=== PATIENT | female | born 1960 | race Caucasian/White ===

== ENCOUNTER 2020-03-04 10:25 | Outpatient (REF) | payer OTHER, SELFPAY ==
--- NOTE | 2020-03-04 | MM_ITS ---
EXAMINATION: MM SCREENING DIGITAL BREAST TOMOSYNTHESIS, BILATERAL CLINICAL INFORMATION: Screening. Asymptomatic. The lifetime risk of breast cancer based on the Tyrer-Cuzick Model is 8.5%. COMPARISON: Mammography: February 27, 2019 and September 10, 2017 TECHNIQUE: Digital breast tomosynthesis is performed in both the craniocaudal and mediolateral oblique views along with computer-aided detection (CAD). Synthesized 2D images are generated from the tomosynthesis. FINDINGS: There are scattered areas of fibroglandular density (ACR BI-RADS breast composition Category b). There are no significant masses, abnormal calcifications, or other abnormalities. IMPRESSION: There are no significant changes from prior study. ASSESSMENT: BI-RADS 1: Negative RECOMMENDATION: Routine annual mammography screening. This patient's information was entered into a reminder system with a target due date for their next mammogram.
== END 2020-03-04 10:26 | disposition home or self-care (01) ==
LOC: HO.MAMMO 10:25
PROVIDERS: PCP Internal Medicine; Visit Provider Internal Medicine
DX: Z12.31 Encounter for screening mammogram for malignant neoplasm of breast (principal)
CPT/HCPCS: 77063; 77067

== ENCOUNTER 2020-04-01 14:21 | Outpatient (REF) | payer OTHER, SELFPAY | END 2020-04-01 14:22 | disposition home or self-care (01) | LOC: HO.HMGCLDS 14:21 | PROVIDERS: PCP Internal Medicine; Visit Provider Internal Medicine | DX: Z20.828 Contact with and (suspected) exposure to other viral communicable diseases (principal) | CPT/HCPCS: C9803; U0003 ==

== ENCOUNTER 2020-04-12 08:41 | Outpatient (REF) | payer OTHER, SELFPAY | END 2020-04-12 08:42 | disposition home or self-care (01) | LOC: HO.HMGCLDS 08:41 | PROVIDERS: PCP Internal Medicine; Visit Provider Internal Medicine | DX: Z20.828 Contact with and (suspected) exposure to other viral communicable diseases (principal) | CPT/HCPCS: C9803; U0003 ==

== ENCOUNTER 2021-03-20 08:55 | Outpatient (REF) | payer OTHER, SELFPAY ==
--- NOTE | ~2021-03-20 | MM_ITS ---
EXAMINATION: MM SCREENING DIGITAL BREAST TOMOSYNTHESIS, BILATERAL CLINICAL INFORMATION: Screening. Asymptomatic. The lifetime risk of breast cancer based on the Tyrer-Cuzick Model is 9%. COMPARISON: Mammography: 03/04/2020, 02/27/2019, 09/10/2017 TECHNIQUE: Digital breast tomosynthesis is performed in both the craniocaudal and mediolateral oblique views along with computer-aided detection (CAD). Synthesized 2D images are generated from the tomosynthesis. FINDINGS: There are scattered areas of fibroglandular density (ACR BI-RADS breast composition Category b). There are no significant masses, abnormal calcifications, or other abnormalities. Parenchymal pattern is similar to prior studies. No significant changes. MM/MM tomosynthesis screening BI IMPRESSION: No mammographic evidence of malignancy. ASSESSMENT: BI-RADS 1: Negative RECOMMENDATION: Routine annual mammography screening. This patient's information was entered into a reminder system with a target due date for their next mammogram.
== END 2021-03-20 08:56 | disposition home or self-care (01) ==
LOC: HO.MAMMO 08:55
PROVIDERS: Visit Provider Internal Medicine
DX: Z12.31 Encounter for screening mammogram for malignant neoplasm of breast (principal)
CPT/HCPCS: 77063; 77067

== ENCOUNTER 2021-06-20 07:01 | Outpatient (REF) | payer OTHER, SELFPAY ==
[2021-06-20 11:34] LABS: MANUAL DIFF FLAG NO
[2021-06-20 11:40] LABS: Basophils Absolute Auto 0.1 X10*3/uL (0.0-0.2); Basophils Percent Auto 0.6 % (0-2); Eosinophils Absolute Auto 0.1 X10*3/uL (0.0-0.4); Eosinophils Percent Auto 1.5 % (0-4); Hematocrit 45.2 % (37.0-47.0); Hemoglobin 14.8 g/dl (12.0-16.0); Imm Gran Abs Auto 0.03 X10*3/uL (0.00-0.03); Imm Gran Pct Auto 0.4 % (0.0-0.4); Lymphocytes Absolute Auto 2.7 X10*3/uL (1.2-4.9); Lymphocytes Percent Auto 31.4 % (20-40); Mean Corpuscular HGB Conc 32.7 g/dl (31.0-35.0); Mean Corpuscular Hemoglobin 31.5 pg (27.0-33.0); Mean Corpuscular Volume 96.2 fL (80.0-98.0); Mean Platelet Volume 10.2 fL (9.4-12.3); Monocytes Absolute Auto 0.7 X10*3/uL (0.1-1.2); Monocytes Percent Auto 7.7 % (2-11); Neutrophils Percent Auto 58.4 % (45-73); Platelet Count 287 X10*3/uL (160-400); Red Cell Distribution Width 12.2 % (11.0-16.0); White Blood Count 8.6 X10*3/uL (4.8-10.8)
[2021-06-20 11:59] LABS: Alanine Aminotransferase 41 U/L (0-31); Albumin Level 4.3 g/dL (3.5-5.0); Alkaline Phosphatase 63 U/L (39-117); Anion Gap 11 (12-20); Aspartate Amino Transferase 23 U/L (5-31); Bilirubin Total 0.5 mg/dL (0.0-1.0); Blood Urea Nitrogen 15 mg/dL (9-16); Calcium 9.6 mg/dL (8.4-10.2); Carbon Dioxide 30 mmol/L (22-29); Chloride 105 mmol/L (96-108); Cholesterol 204 mg/dL; Estimated Glomerular Filt Rate > 60; Glucose Fasting 106 mg/dL (60-99); HDL Cholesterol 44 mg/dL; LDL Cholesterol Calculated 124 mg/dl; Potassium 4.5 mmol/L (3.3-5.1); Sodium 141 mmol/L (135-145); Triglycerides 181 mg/dL
[2021-06-24 13:06] LABS: Vitamin D 25-OH, D2 <4 ng/mL; Vitamin D 25-OH, D3 23 ng/mL; Vitamin D 25-OH, Total 23 ng/mL (30-100)
== END 2021-06-20 07:02 | disposition home or self-care (01) ==
LOC: HO.HMGCLDS 07:01
PROVIDERS: Visit Provider Internal Medicine
DX: E03.8 Other specified hypothyroidism (principal); E55.9 Vitamin D deficiency, unspecified; E66.09 Other obesity due to excess calories; G47.33 Obstructive sleep apnea (adult) (pediatric); R73.01 Impaired fasting glucose; Z99.89 Dependence on other enabling machines and devices
CPT/HCPCS: 36415; 80053; 80061; 82306; 84443; 85025

== ENCOUNTER 2022-03-26 08:28 | Outpatient (REF) | payer OTHER, SELFPAY ==
--- NOTE | ~2022-03-26 | MM_ITS ---
EXAMINATION: MM SCREENING DIGITAL BREAST TOMOSYNTHESIS, BILATERAL CLINICAL INFORMATION: Screening. Asymptomatic. The lifetime risk of breast cancer based on the Tyrer-Cuzick Model is 6%. COMPARISON: Mammography: 03/20/2021, 03/04/2020, 02/27/2019 TECHNIQUE: Digital breast tomosynthesis is performed in both the craniocaudal and mediolateral oblique views along with computer-aided detection (CAD). Synthesized 2D images are generated from the tomosynthesis. FINDINGS: There are scattered areas of fibroglandular density (ACR BI-RADS breast composition Category b). There are no significant masses, abnormal calcifications, or other abnormalities. Parenchymal pattern is similar to prior studies. There is no developing density or architectural abnormality. The axilla and skin contours are unremarkable. No significant changes. MM/MM tomosynthesis screening BI IMPRESSION: No mammographic evidence of malignancy. ASSESSMENT: BI-RADS 1: Negative RECOMMENDATION: Routine annual mammography screening. This patient's information was entered into a reminder system with a target due date for their next mammogram.
== END 2022-03-26 08:29 | disposition home or self-care (01) ==
LOC: HO.MAMMO 08:28
PROVIDERS: PCP Internal Medicine; Visit Provider Internal Medicine
DX: Z12.31 Encounter for screening mammogram for malignant neoplasm of breast (principal)
CPT/HCPCS: 77063; 77067

== ENCOUNTER 2022-08-02 07:27 | Outpatient (REF) | payer OTHER, SELFPAY ==
[2022-08-02 11:06] LABS: MANUAL DIFF FLAG NO
[2022-08-02 11:22] LABS: Basophils Percent Auto 0.6 % (0-2); Eosinophils Absolute Auto 0.1 X10*3/uL (0.0-0.4); Eosinophils Percent Auto 1.7 % (0-4); Hematocrit 45.2 % (37.0-47.0); Hemoglobin 14.9 g/dl (12.0-16.0); Imm Gran Abs Auto 0.02 X10*3/uL (0.00-0.03); Imm Gran Pct Auto 0.3 % (0.0-0.4); Lymphocytes Absolute Auto 2.7 X10*3/uL (1.2-4.9); Lymphocytes Percent Auto 37.4 % (20-40); Mean Corpuscular Hemoglobin 31.2 pg (27.0-33.0); Mean Corpuscular Volume 94.6 fL (80.0-98.0); Mean Platelet Volume 10.2 fL (9.4-12.3); Monocytes Absolute Auto 0.6 X10*3/uL (0.1-1.2); Monocytes Percent Auto 8.1 % (2-11); Neutrophils Absolute Auto 3.7 x10*3/uL (2.0-8.3); Neutrophils Percent Auto 51.9 % (45-73); Platelet Count 275 X10*3/uL (160-400); Red Blood Count 4.78 X10*6/uL (4.20-5.50); Red Cell Distribution Width 12.2 % (11.0-16.0); White Blood Count 7.2 X10*3/uL (4.8-10.8)
[2022-08-02 11:30] LABS: Estimated Average Glucose 114 mg/dL; Hemoglobin A1c % 5.6 %
[2022-08-02 11:49] LABS: Alanine Aminotransferase 30 U/L (0-31); Albumin Level 4.3 g/dL (3.5-5.0); Alkaline Phosphatase 65 U/L (39-117); Anion Gap 14 (12-20); Aspartate Amino Transferase 19 U/L (5-31); Bilirubin Total 0.5 mg/dL (0.0-1.0); Blood Urea Nitrogen 17 mg/dL (9-16); Calcium 9.8 mg/dL (8.4-10.2); Carbon Dioxide 29 mmol/L (22-29); Chloride 106 mmol/L (96-108); Cholesterol 203 mg/dL; Estimated Glomerular Filt Rate > 60; Glucose Fasting 115 mg/dL (60-99); HDL Cholesterol 40 mg/dL; LDL Cholesterol Calculated 136 mg/dl; Potassium 4.9 mmol/L (3.3-5.1); Sodium 144 mmol/L (135-145); Total Protein 6.7 g/dL (6.5-8.0); Triglycerides 139 mg/dL
[2022-08-02 12:39] LABS: TSH reflex Free T4 2.18 uIU/mL (0.32-4.0)
[2022-08-08 23:14] LABS: Vitamin D 25-OH, D2 <4 ng/mL; Vitamin D 25-OH, D3 25 ng/mL; Vitamin D 25-OH, Total 25 ng/mL (30-100)
== END 2022-08-02 07:28 | disposition home or self-care (01) ==
LOC: HO.HMGCLDS 07:27
PROVIDERS: PCP Internal Medicine; Visit Provider Internal Medicine
DX: Z00.01 Encounter for general adult medical examination with abnormal findings (principal); E03.8 Other specified hypothyroidism; E55.9 Vitamin D deficiency, unspecified; E66.09 Other obesity due to excess calories; R73.01 Impaired fasting glucose
CPT/HCPCS: 36415; 80053; 80061; 82306; 83036; 84443; 85025

== ENCOUNTER 2023-02-11 11:08 | Outpatient (AMB) | payer OTHER, SELFPAY ==
[2023-02-11 11:40] VITALS: BP 126/78; PULSE 73; TEMP 36.7; O2SAT 98; BMI 37.1
--- NOTE | 2023-02-11 11:40 | AM.OFFWIN_ITS ---
Intake Vital Signs 02/11/23 11:40 Height 5 ft 2 in Weight 92.079 kg BMI 37.1 BP 126/78 Blood Pressure Location Rt brachial Position Sitting Pulse 73 Pulse Source Pulse Oximeter Temp 98.1 F Temp Source Temporal Artery Scan Pulse Oximetry (%) 98 Intake Visit Reasons: EST/uti Intake Note: pt is here for c/o possible uti Patient Tobacco Use Status: Former Tobacco user (38 years ago ) Allergies No Known Allergies Allergy (Verified 02/11/23 11:42) Do you need a note to return to daycare/school/sports/work: Yes HPI EST/uti HPI Details Patient presents with dysuria, urinary urgency and frequency x3 weeks. She denies fevers, hematuria, flank pain or pelvic pain. She has had similar UE symptoms in the past that were diagnosed as UTI. No history of known prolapse or bladder spasms or kidney stones. Denies vaginal symptoms or discharge. PFSH Family History Other Substance use disorder Social History Housing: House Alcohol intake: current Alcohol intake frequency: a few times a month Patient Tobacco Use Status: Former Tobacco user (38 years ago ) Tobacco use type: Cigarette Years Smoked: 7 years e-Cigarette/Vaping Use: Never Used Second Hand Smoke Exposure: No service: No Current occupational status: retired Current occupational exposures/hazards: No Cognitive needs: No Hearing needs: No Vision needs: Yes Review of Systems Const Reports as per HPI and Reports no additional complaints GI Reports as per HPI and Reports no additional complaints Reports as per HPI Physical Exam Vital Signs: Last Vital Signs Temp 98.1 F 02/11/23 11:40 Pulse 73 02/11/23 11:40 BP 126/78 02/11/23 11:40 Pulse Ox 98 02/11/23 11:40 BMI result Body Mass Index 37.1 Const General: cooperative, comfortable and no acute distress Orientation/consciousness: patient oriented x3 Resp Effort & Inspection: normal respiratory effort Auscultation: clear to auscultation bilaterally Cardio Rate: regular rate Rhythm: regular rhythm Heart sounds: S1 normal heart sound present and S2 normal heart sound present General: Yes bladder normal to palpation and Yes no CVA tenderness Bimanual exam- vagina & uterus: bladder normal to palpation Back/Spine/Pelvis Back: no CVA tenderness Neuro General: patient oriented x3 Results AMB Urinalysis, Automated UA Leukoctes 0 Gi/uL Last Edit by Ash Munoz CMA on 02/11/23 11:48 UA Nitrite Negative Last Edit by Ash Munoz CMA on 02/11/23 11:48 UA Urobilinogen 0.2 mg/dL Last Edit by Ash Munoz CMA on 02/11/23 11 :48 UA Protein 0 mg/dL Last Edit by Ash Munoz CMA on 02/11/23 11:48 UA pH 6.0 Last Edit by Ash Munoz CMA on 02/11/23 11:48 UA Blood 0 Enrike/uL Last Edit by Ash Munoz CMA on 02/11/23 11:48 UA Specific [place] 1.005 Last Edit by Ash Munoz CMA on 02/11/23 11:48 UA Ketone Negative Last Edit by Ash Munoz CMA on 02/11/23 11:48 UA Bilirubin 0 mg/dL Last Edit by Ash Munoz CMA on 02/11/23 11:48 UA Glucose 0 mg/dL Last Edit by Ash Munoz CMA on 02/11/23 11:48 Results Reviewed Results Reviewed: Laboratory Last Values Urine pH (Auto) 6.0 02/11/23 11:47 Specific [place] (Auto) 1.005 02/11/23 11:47 Urine Protein (Auto) 0 mg/dL 02/11/23 11:47 Glucose (UA)(Auto) 0 mg/dL 02/11/23 11:47 Urine Ketones (Auto) Negative 02/11/23 11:47 Urine Blood (Auto) 0 Enrike/uL 02/11/23 11:47 Urine Nitrite (Auto) Negative 02/11/23 11:47 Urine Bilirubin (Auto) 0 mg/dL 02/11/23 11:47 Urine Urobilinogen (Auto) 0.2 mg/dL 02/11/23 11:47 Leukocyte Esterase (Auto) 0 Gi/uL 02/11/23 11:47 Assessment & Plan Assessment & Plan (1) Dysuria: Code(s): R30.0 - Dysuria Plan: Will treat for UTI although urine sample provided today is nondiagnostic. Advised patient she may need follow-up with PCP or referral to urology if symptoms persist to rule out other causes of her symptoms such as prolapse, cystitis, overactive bladder. Orders: Orders AMB Urinalysis Automated Today Z13.9 - Encounter for screening, unspecified John Caba MD Medications: New nitrofurantoin monohyd/m-cryst 100 mg (Macrobid) must administer with a meal/food 100 mg PO Q12H 5 days 10 caps 0RF CHRISTIN Quintanilla Coding Level of Care Code Est Pt Level 3 (36939) Diagnoses Dysuria R30.0
== END 2023-02-11 12:10 | disposition home or self-care (01) ==
PROVIDERS: PCP Internal Medicine; Visit Provider Physician Assistant
DX: R30.0 Dysuria (principal)
CPT/HCPCS: 81003; 99213

== ENCOUNTER 2023-04-01 09:09 | Outpatient (REF) | payer OTHER, SELFPAY | END 2023-04-01 09:10 | disposition home or self-care (01) | LOC: HO.MAMMO 09:09 | PROVIDERS: PCP Internal Medicine; Visit Provider Internal Medicine | DX: Z12.31 Encounter for screening mammogram for malignant neoplasm of breast (principal) | CPT/HCPCS: 77063; 77067 ==

== ENCOUNTER → 2023-04-01 09:30 | Outpatient (BNV) | payer OTHER, SELFPAY | PROVIDERS: PCP Internal Medicine; Visit Provider Radiology Diagnostic Radiology | DX: Z12.31 Encounter for screening mammogram for malignant neoplasm of breast (principal) | CPT/HCPCS: 77063; 77067 ==

== ENCOUNTER 2023-08-02 13:12 | Outpatient (AMB) | payer OTHER, SELFPAY ==
[2023-08-02 13:19] VITALS: BP 124/66; PULSE 71; O2SAT 98; BMI 37.2
--- NOTE | 2023-08-02 13:19 | MHC.PC.OV ---
Vital Signs 08/02/23 13:19 Height 5 ft 2 in Weight 203 lb 6 oz BMI 37.2 BP 124/66 Blood Pressure Location Lt brachial Position Sitting Pulse 71 Pulse Source Pulse Oximeter Pulse Oximetry (%) 98 Oxygen Delivery Method Room Air Intake Visit Reasons: PE Allergies No Known Allergies Allergy (Verified 08/02/23 13:19) Medication List - Last Reconciled 08/02/23 by Regino Jimenez MD albuterol sulfate 90 mcg/actuation (Ventolin HFA) 2 inhalations inhalation QID PRN levothyroxine 25 mcg PO DAILY 90 days Tobacco use date assessed: 08/02/23 Dental Screening Dental Screen Date: 08/02/23 Did you have a dental visit in the last 12 months?: Yes Did you have a dental problem in the last 6 months where you did not have access to dental care?: No Was dental information given to patient?: Patient has dentist HPI PE HPI Details PE Mamogram 03/2023 due for Obgyn visit Colonoscopy will be in 2025 as per patient due for labs, order placed fasting f/u 1 yr PFSH Family History Other Substance use disorder Social History Housing: House Alcohol intake: current Alcohol intake frequency: a few times a month Patient Tobacco Use Status: Former Tobacco user (38 years ago ) Tobacco use type: Cigarette Years Smoked: 7 years e-Cigarette/Vaping Use: Never Used Second Hand Smoke Exposure: No service: No Current occupational status: retired Current occupational exposures/hazards: No Cognitive needs: No Hearing needs: No Vision needs: Yes Questionnaire Thrive Questionnaire Date Thrive assessed: 07/20/22 AUDIT C Alcohol Use Questionnaire (AUDIT-C) 1. How often do you have a drink containing alcohol?: Monthly or less 2. How many drinks containing alcohol do you have on a typical day when you are drinking?: 1 or 2 3. How often do you have six or more drinks on one occasion?: Never Total Score: 1 Score Reviewed/Action Taken: Yes ARMANDO-7 AMB Questionnaire ARMANDO-7 Date ARMANDO - 7 assessed: 07/20/22 Source: Developed by Drs. Javier Parkinson, Kavya Calvillo, Adam Gonzalez and colleagues, with an educational sterling from [employer]. Review of Systems Const Denies chills, Denies fever(s) and Denies headache(s) Eyes Denies blurry vision ENT Denies headache(s), Denies nasal discharge, Denies nasal obstruction, Denies odynophagia and Denies sinus pain Card Denies chest pain at rest and Denies chest pain with activity Resp Denies cough and Denies hemoptysis GI Denies diarrhea, Denies odynophagia, Denies vomiting and Denies hematemesis Reports as per HPI Musc Denies abnormal gait Skin/Breast Reports as per HPI Neuro Denies Neuro-related abnormal movements, Denies Abnormal speech present, Denies abnormal gait, Denies headache(s) and Denies Sensory deficit (Neuro) Psych Denies mood swings and Denies paranoia Endo Reports as per HPI Suman/Lymph Reports as per HPI Aller/Immun Reports as per HPI Physical exam (Primary Care) Vital Signs: Last Vital Signs Pulse 71 08/02/23 13:19 BP 124/66 08/02/23 13:19 Pulse Ox 98 08/02/23 13:19 Oxygen Delivery Method Room Air 08/02/23 13:19 BMI result Body Mass Index 37.2 Tobacco/Smoking Status: Tobacco use Status Tobacco use date assessed 08/02/23 08/02/23 13:21 Patient Tobacco Use Status Former Tobacco user (38 08/02/23 13:21 years ago ) Tobacco use type Cigarette 08/02/23 13:21 e-Cigarette/Vaping Use Never Used 08/02/23 13:21 Thrive Assessment: Date of Thrive Assessment Date Thrive assessed 07/20/22 08/02/23 13:21 Const General: cooperative, comfortable and no acute distress Orientation/consciousness: patient oriented x3 HENMT Head: Yes normocephalic and Yes atraumatic Eyes General: appearance normal, both eyes and all related structures Pupils: Equal, round and reactive pupils present EOM: EOMs intact bilaterally Neck Neck: Yes supple and No lymphadenopathy Thyroid: Thyroid normal Lymphatic: no lymphadenopathy noted Resp Effort & Inspection: normal respiratory effort and able to speak in complete sentences Auscultation: clear to auscultation bilaterally Cardio Heart sounds: S1 normal heart sound present and S2 normal heart sound present GI Palpation (GI): Soft to palpation and nontender Auscultation: normal bowel sounds General: Yes no CVA tenderness Back/Spine/Pelvis Back: no CVA tenderness Skin General skin exam: elasticity normal and turgor normal Neuro General: patient oriented x3 and gait normal Cranial nerves: Yes Equal, round and reactive pupils present Speech: No Abnormal speech present Sensory Exam: No Sensory deficit (Neuro) Coordination: tandem gait normal and Romberg test negative Extrem General: Yes normal exam except as noted and No edema Assessment and Plan Assessment & Plan (1) Other specified hypothyroidism: Code(s): E03.8 - Other specified hypothyroidism (2) Obesity due to excess calories: Code(s): E66.09 - Other obesity due to excess calories Qualifiers: Body mass index: BMI 37.0-37.9 Obesity classification: adult class 2 (BMI 35 - 39.9) Serious obesity comorbidity presence: with serious comorbidity Qualified Code(s): E66.01 - Morbid (severe) obesity due to excess calories; Z68.37 - Body mass index [BMI] 37.0-37.9, adult (3) Impaired fasting blood sugar: Code(s): R73.01 - Impaired fasting glucose (4) Vitamin D deficiency: Code(s): E55.9 - Vitamin D deficiency, unspecified (5) Encounter for general adult medical examination with abnormal findings: Code(s): Z00.01 - Encounter for general adult medical examination with abnormal findings (6) Obstructive sleep apnea on CPAP: Code(s): G47.33 - Obstructive sleep apnea (adult) (pediatric); Z99.89 - Dependence on other enabling machines and devices (7) Encounter for routine gynecological examination: Code(s): Z01.419 - Encounter for gynecological examination (general) (routine) without abnormal findings Orders: Orders Complete Blood Count Auto Diff Today E03.8 - Other specified hypothyroidism, E55.9 - Vitamin D deficiency, unspecified, E66.09 - Other obesity due to excess calories, G47.33 - Obstructive sleep apnea (adult) (pediatric), R73.01 - Impaired fasting glucose, Z00.01 - Encounter for general adult medical examination with abnormal findings, Z99.89 - Dependence on other enabling machines and devices Comprehensive [place]. Panel Fast Today E03.8 - Other specified hypothyroidism, E55.9 - Vitamin D deficiency, unspecified, E66.09 - Other obesity due to excess calories, G47.33 - Obstructive sleep apnea (adult) (pediatric), R73.01 - Impaired fasting glucose, Z00.01 - Encounter for general adult medical examination with abnormal findings, Z99.89 - Dependence on other enabling machines and devices Lipid Panel Today E03.8 - Other specified hypothyroidism, E55.9 - Vitamin D deficiency, unspecified, E66.09 - Other obesity due to excess calories, G47.33 - Obstructive sleep apnea (adult) (pediatric), R73.01 - Impaired fasting glucose, Z00.01 - Encounter for general adult medical examination with abnormal findings, Z99.89 - Dependence on other enabling machines and devices TSH reflex Free T4 Today E03.8 - Other specified hypothyroidism, E55.9 - Vitamin D deficiency, unspecified, E66.09 - Other obesity due to excess calories, G47.33 - Obstructive sleep apnea (adult) (pediatric), R73.01 - Impaired fasting glucose, Z00.01 - Encounter for general adult medical examination with abnormal findings, Z99.89 - Dependence on other enabling machines and devices Hemoglobin A1c Today R73.01 - Impaired fasting glucose Referrals MEDICAL RECORD TRANSCRIBER Referral Z01.419 - Encounter for gynecological examination (general) (routine) without abnormal findings Coding Level of Care Code Est Pt Prev Care 40-64y(96690) Diagnoses Other specified hypothyroidism E03.8 Class 2 severe obesity due to excess calories with serious comorbidity and body mass index (BMI) of 37.0 to 37.9 in adult E66.01; Z68.37 Body mass index: BMI 37.0-37.9 Obesity classification: adult class 2 (BMI 35 - 39.9) Serious obesity comorbidity presence: with serious comorbidity Impaired fasting blood sugar R73.01 Vitamin D deficiency E55.9 Encounter for general adult medical examination with abnormal findings Z00.01 Obstructive sleep apnea on CPAP G47.33; Z99.89 Encounter for routine gynecological examination Z01.419
== END 2023-08-02 13:37 | disposition home or self-care (01) ==
PROVIDERS: PCP Internal Medicine; Visit Provider Internal Medicine
DX: E03.8 Other specified hypothyroidism (principal); E66.01 Morbid (severe) obesity due to excess calories; Z68.37 Body mass index [BMI] 37.0-37.9, adult; R73.01 Impaired fasting glucose; E55.9 Vitamin D deficiency, unspecified; Z00.01 Encounter for general adult medical examination with abnormal findings; G47.33 Obstructive sleep apnea (adult) (pediatric); Z99.89 Dependence on other enabling machines and devices; Z01.419 Encounter for gynecological examination (general) (routine) without abnormal findings
CPT/HCPCS: 99396

== ENCOUNTER 2024-02-18 08:30 | Outpatient (REF) | payer OTHER, SELFPAY ==
[2024-02-21 00:43] LABS: HPV mRNA E6/E7 Not Detected (Not Detected)
== END 2024-02-18 08:31 | disposition home or self-care (01) ==
LOC: HO.LNP 08:30
PROVIDERS: PCP Internal Medicine; Visit Provider Advanced Practice Midwife
DX: Z01.419 Encounter for gynecological examination (general) (routine) without abnormal findings (principal)
CPT/HCPCS: 87624; 88175; 99386

== ENCOUNTER 2024-02-18 08:30 | Outpatient (AMB) | payer OTHER, SELFPAY ==
--- NOTE | 2024-02-18 08:38 | MHC.OFFVIS ---
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 She is doing well with no concerns. Attempting to eat a healthy diet with calcium and vitamin D and stays active with exercise. Currently not sexually active. Denies any vaginal dryness or irritation. STI testing offered; she declines. Last pap smear; 2016-at [facility], negative. Last mammogram; 03/2023. Colonoscopy is UTD. Denies any family history of breast, ovarian or colon cancer. [facility] Medical History (Updated 02/18/24 @ 09:07 by Magda Villa CNM) Asthma Other specified hypothyroidism Surgical History (Updated 02/18/24 @ 08:50 by VERÓNICA Lou) History of loop electrical excision procedure (LEEP) Family History (Updated 02/18/24 @ 08:47 by VERÓNICA Lou) Maternal Grandmother History of breast cancer Other Substance use disorder Social History Housing: House Alcohol intake: current Alcohol intake frequency: a few times a month Patient Tobacco Use Status: Former Tobacco user (38 years ago ) Tobacco use type: Cigarette Years Smoked: 7 years e-Cigarette/Vaping Use: Never Used Second Hand Smoke Exposure: No service: No Current occupational status: retired Current occupational exposures/hazards: No Cognitive needs: No Hearing needs: No Vision needs: Yes Female Reproductive History Menstrual Age of menopause: 50 Total pregnancies: 2 Full term: 2 Number of Living Children: 2 Date of last pap smear: 11/08/16 (neg pap and hpv) Date of Mammogram: 04/01/23 (Birad 1) Review of Systems Const All systems reviewed & are unremarkable except as noted in HPI and below Reports as per HPI Eyes Reports no additional complaints ENT Reports no additional complaints Card Reports no additional complaints Resp Reports no additional complaints GI Reports as per HPI and Reports no additional complaints Reports as per HPI Musc Reports no additional complaints Skin/Breast Reports as per HPI Neuro Reports no additional complaints Psych Reports no additional complaints Endo Reports no additional complaints Suman/Lymph Reports no additional complaints Aller/Immun Reports no additional complaints Physical Exam Vital Signs: BMI result Body Mass Index 38.4 Const General: cooperative, healthy appearing, no acute distress, well developed and alert Orientation/consciousness: patient oriented x3 HEENT Head: Yes normal to inspection Eyes General: appearance normal, both eyes and all related structures Neck Neck: Yes normal visual inspection Thyroid: Thyroid normal Chest Chest palpation & inspection: normal inspection of the chest and other (no puckering, dimpling, peau de orange, retraction, discharge, masses) Breast/axilla inspection: normal inspection of the breasts Breast/axilla palpation: normal palpation of the breasts Resp Effort & Inspection: normal respiratory effort GI Inspection: Yes normal to inspection Palpation (GI): Soft to palpation Rectal Exam - Female: deferred General: Yes bladder normal to palpation External Female Exam: normal external appearance and normal appearance of the urethra Speculum Exam - Vagina: normal appearance of the vagina, normal palpation and normal vaginal discharge Speculum Exam - Cervix: normal appearance of the cervix and normal palpation Bimanual exam- vagina & uterus: normal bimanual exam, normal palpation, uterine size normal, bladder normal to palpation, normal palpation and non-tender Bimanual Exam- Adnexa, other: no masses Skin General skin exam: no rashes or lesions noted Rashes: no rashes Neuro General: patient oriented x3 Cognition (Neuro): normal cognition Extrem General: Yes normal to inspection Psych Attitude: cooperative Thought process: Normal thought process present Assessment & Plan Assessment & Plan (1) Encounter for well woman exam with routine gynecological exam: Code(s): Z01.419 - Encounter for gynecological examination (general) (routine) without abnormal findings Category: Medical Plan Discussed: Current recommendations for pap smears per ASCCP guidelines. Pap smear obtained. Breast awareness, periodic self breast exams and yearly mammogram. Maintain a healthy lifestyle, well balanced diet including Calcium 1,200 mg and Vitamin D 600 IU daily, and routine exercise. Replens moisturizer and vaginal lubricants, role of vaginal estrogens risk factors. She opts to try Replens, and will follow up as needed. Contact the office with any postmenopausal bleeding. Patient verbalizes understanding and agrees to the plan of care. She was given opportunity to ask questions and all questions were answered to the best of my ability. RTO in 1 year for annual headrig sawyer exam. This note is constructed using voice recognition software. While every effort has been made to ensure accuracy, president financial institution errors may have been included. Coding Level of Care Code New Pt Prev Care 40-64y(23889) Diagnoses Encounter for well woman exam with routine gynecological exam Z01.419
[2024-02-18 08:40] VITALS: BP 120/82; BMI 38.4
== END 2024-02-18 09:09 | disposition home or self-care (01) ==
PROVIDERS: PCP Internal Medicine; Visit Provider Advanced Practice Midwife
DX: Z01.419 Encounter for gynecological examination (general) (routine) without abnormal findings (principal)
CPT/HCPCS: 99386

== ENCOUNTER 2024-04-02 08:56 | Outpatient (REF) | payer OTHER, SELFPAY ==
--- NOTE | ~2024-04-02 | MM_ITS ---
EXAMINATION: MM SCREENING DIGITAL BREAST TOMOSYNTHESIS, BILATERAL CLINICAL INFORMATION: Screening. Asymptomatic. COMPARISON: Mammography: Comparison is made with available priors TECHNIQUE: Digital breast mammography with tomosynthesis is performed in both the craniocaudal and mediolateral oblique views along with computer-aided detection (CAD). FINDINGS: There are scattered areas of fibroglandular density (ACR BI-RADS breast composition Category b). There are no significant masses, abnormal calcifications, or other abnormalities. MM/MM tomosynthesis screening BI IMPRESSION: No mammographic evidence of malignancy. ASSESSMENT: BI-RADS BI-RADS 1 - Negative RECOMMENDATION: Routine annual mammography screening. 1 year F/U This examination should not preclude the clinical evaluation of a suspicious palpable abnormality. This patient's information was entered into a reminder system with a target due date for their next mammogram. Electronically signed by: Xochitl Hammonds DO 04/10/2024 10:45 AM NIKIA
== END 2024-04-02 08:57 | disposition home or self-care (01) ==
LOC: HO.MAMMO 08:56
PROVIDERS: PCP Internal Medicine; Visit Provider Internal Medicine
DX: Z12.31 Encounter for screening mammogram for malignant neoplasm of breast (principal)
CPT/HCPCS: 77063; 77067

== ENCOUNTER → 2024-04-02 09:15 | Outpatient (BNV) | payer OTHER, SELFPAY | PROVIDERS: PCP Internal Medicine; Visit Provider Internal Medicine | DX: Z12.31 Encounter for screening mammogram for malignant neoplasm of breast (principal) | CPT/HCPCS: 77063; 77067 ==

== ENCOUNTER 2024-08-19 15:07 | Outpatient (AMB) | payer OTHER, SELFPAY ==
[2024-08-19 15:11] VITALS: BP 134/80; PULSE 79; O2SAT 99; BMI 37.7
--- NOTE | 2024-08-19 15:11 | A.OFFPC_ITS ---
Vital Signs 08/19/24 15:11 Height 5 ft 2 in Weight 206 lb BMI 37.7 BP 134/80 Blood Pressure Location Lt brachial Position Sitting Pulse 79 Pulse Source Pulse Oximeter Pulse Oximetry (%) 99 Oxygen Delivery Method Room Air Intake Visit Reasons: Annual physical Allergies No Known Allergies Allergy (Verified 08/19/24 15:11) Medication List - Last Reconciled 08/19/24 by Regino Jimenez MD albuterol sulfate 90 mcg/actuation (Ventolin HFA) 2 inhalations inhalation QID PRN levothyroxine 25 mcg PO DAILY 90 days Tobacco use date assessed: 08/19/24 Dental Screening Dental Screen Date: 08/19/24 Did you have a dental visit in the last 12 months?: Yes Did you have a dental problem in the last 6 months where you did not have access to dental care?: No Was dental information given to patient?: Patient has dentist HPI Annual physical HPI Details PE The patient is a 63-year-old female presenting with symptoms related to the eye possibly due to allergies. - She reports intermittent episodes of i rritation and itchiness in the right eye, - These symptoms occur off and on, and r ubbing the eye appears to exacerbate the irritation - She notes these symptoms are likely re lated to springtime allergies, Patient is feeling emotional as she just lost her son 2 weeks ago but holding on She has obstructive sleep apnea and her machine is malfunctioning It has been 10 years since she had a sleep study done, new order placed Patient has seen [facility] end of last year and has appointment coming up Mammogram through them She is due for colonoscopy, referral placed Trying to lose weight Lab order placed, which is overdue Patient is prediabetic She is also taking levothyroxine 25 mcg She says that she will come in tomorrow for blood test Follow-up 1 year physical exam Diagnostic results - Blood pressure recorded at 134/80 mmHg , indicating prehypertensive range. Review of Systems - Neurological: No headaches no dizzin ess - Ear nose throat: No sore throat no hearing difficulty no ear pain - Cardiovascular: No syncope, no chest pain, no palpitations - Gastrointestinal: No nausea vomiting or diarrhea - Endocrine: No polyuria polydipsia no heat intolerance - Genitourinary: No dysuria - Skin: No new complaints Physical Exam General: Cooperative, healthy appearing, comfortable, no acute distress Head: Normal to inspection Ears: Within normal limit visually, slight injection right eye without any discharge ROBERT EOMI no pain with palpation Nose: Normal external nose present Face and sinus: Normal facial exam Eyes: Appearance normal, extraocular movement intact, pupils reactive, conjunctiva irritated due to allergies Neck: Normal visual inspection and supple Respiratory: Normal respiratory effort and able to speak in complete sentences. Clear to auscultation, no stridor Cardiovascular: S1 and S2 regular in rate and rhythm Breast exam through OBGYN GI: Normal to inspection. Soft to palpation and nontender Skin: Turgor normal, no acute findings, small spot on leg noted, attributed to aging process Neuro: Patient oriented x3, motor sensory intact, balance intact, tandem pass Extremities: Normal to inspection, knees and hips okay [facility] Medical History Asthma Other specified hypothyroidism Surgical History History of loop electrical excision procedure (LEEP) Family History Maternal Grandmother History of breast cancer Other Substance use disorder Social History Housing: House Alcohol intake: current Alcohol intake frequency: a few times a month Patient Tobacco Use Status: Former Tobacco user (38 years ago ) Tobacco use type: Cigarette Years Smoked: 7 years e-Cigarette/Vaping Use: Never Used Second Hand Smoke Exposure: No service: No Current occupational status: retired Current occupational exposures/hazards: No Cognitive needs: No Hearing needs: No Vision needs: Yes Questionnaire PHQ-9 Over the last 2 weeks, how often have you been bothered by any of the following problems? 1. Little interest or pleasure in doing things: several days 2. Feeling down, depressed, or hopeless: several days 3. Trouble falling or staying asleep, or sleeping too much: several days 4. Feeling tired or having little energy: several days 5. Poor appetite or overeating: several days 6. Feeling bad about yourself - or that you are a failure or have let yourself or your family down: several days 7. Trouble concentrating on things, such as reading the newspaper or watching television: several days 8. Moving or speaking so slowly that other people could have noticed. Or the opposite - being so fidgety or restless that you have been moving around a lot more than usual: several days 9. Thoughts that you would be better off or of hurting yourself in some way: not at all Total score: 8 Depression Screening Interpretation: Negative Depression Screening Done: Yes 27384 - PHQ-9 Billing: Yes Source: Developed by Drs. Javier Parkinson, Kavya Calvillo, Adam Gonzalez and colleagues, with an educational sterling from [employer]. Thrive Questionnaire Date Thrive assessed: 08/19/24 I am a: Patient What is your living situation today?: I have a steady place to live Within the past 12 months, did the food you bought not last and you didn't have the money to get more?: Never true Within the past 12 months, did you worry whether your food would run out before you got money to buy more?: Sometimes True Do you have trouble paying for medicines?: No Do you have trouble getting transportation to medical appointments?: No Do you have trouble paying your heating and electricity bill?: No Do you have trouble taking care of your child, family member or friend?: No Do you have trouble with day-to-day activities such as bathing, preparing meals, shopping, managing finances, etc.?: No Are you currently unemployed and looking for a job?: No Are you interested in more education?: No Please select the resources that you would like help with: None Currently or been in a relationship where the following occur: No concerns reported THRIVE Score: 1 AUDIT C Alcohol Use Questionnaire (AUDIT-C) 1. How often do you have a drink containing alcohol?: Monthly or less 2. How many drinks containing alcohol do you have on a typical day when you are drinking?: 1 or 2 3. How often do you have six or more drinks on one occasion?: Never Total Score: 1 Score Reviewed/Action Taken: Yes ARMANDO-7 AMB Questionnaire ARMANDO-7 Date ARMANDO - 7 assessed: 08/19/24 Feeling nervous, anxious, or on edge: 0 = Not at all Not being able to stop or control worryin = Not at all Worrying too much about different things: 0 = Not at all Trouble relaxin = Not at all Being so restless that it is hard to sit still: 0 = Not at all Becoming easily annoyed or irritable: 0 = Not at all Feeling afraid as if something awful might happen: 0 = Not at all Total ARMANDO-7 score (0-4 normal; 5-9 mild; 10-14 moderate; 15-21 severe): 0 Source: Developed by Drs. Javier Parkinson, Kavya Calvillo, Adam Gonzalez and colleagues, with an educational sterling from [employer]. ARMANDO-7 Assessment Billing ARMANDO-7 Assessment Tool: ARMANDO-7 Assessment 33452 Physical exam (Primary Care) Vital Signs: Last Vital Signs Pulse 79 08/19/24 15:11 BP 134/80 08/19/24 15:11 Pulse Ox 99 08/19/24 15:11 Oxygen Delivery Method Room Air 08/19/24 15:11 BMI result Body Mass Index 37.7 Tobacco/Smoking Status: Tobacco use Status Tobacco use date assessed 08/19/24 08/19/24 15:11 Patient Tobacco Use Status Former Tobacco user (38 08/19/24 15:11 years ago ) Tobacco use type Cigarette 08/19/24 15:11 e-Cigarette/Vaping Use Never Used 08/19/24 15:11 PHQ-9: PHQ-9 Score PHQ-9: Total score 8 08/19/24 15:21 Depression Screening Interpretation: Negative Thrive Assessment: Date of Thrive Assessment Date Thrive assessed 08/19/24 08/19/24 15:21 Currently or been in a relationship where the following occur: No concerns reported Coding Level of Care Code Est Pt Level 3 (26847) Est Pt Prev Care 40-64y(36593) Diagnoses Encounter for general adult medical examination with abnormal findings Z00.01 Sleep apnea in adult G47.30 Impaired fasting blood sugar R73.01 Class 2 severe obesity due to excess calories with serious comorbidity and body mass index (BMI) of 37.0 to 37.9 in adult E66.01; Z68.37 Body mass index: BMI 37.0-37.9 Obesity classification: adult class 2 (BMI 35 - 39.9) Serious obesity comorbidity presence: with serious comorbidity Other specified hypothyroidism E03.8 Colon cancer screening Z12.11 Additional Codes ARMANDO-7 Assessment Billing - ARMANDO-7 Assessment Tool: ARMANDO-7 Assessment 12570 ([id number]) PHQ-9 - 66088 - PHQ-9 Billing: Yes ([id number]) Assessment & Plan Assessment & Plan (1) Encounter for general adult medical examination with abnormal findings: Code(s): Z00.01 - Encounter for general adult medical examination with abnormal findings Category: Medical (2) Sleep apnea in adult: Code(s): G47.30 - Sleep apnea, unspecified Category: Medical (3) Impaired fasting blood sugar: Code(s): R73.01 - Impaired fasting glucose Category: Medical (4) Obesity due to excess calories: Code(s): E66.09 - Other obesity due to excess calories Category: Medical Qualifiers: Body mass index: BMI 37.0-37.9 Obesity classification: adult class 2 (BMI 35 - 39.9) Serious obesity comorbidity presence: with serious comorbidity Qualified Code(s): E66.01 - Morbid (severe) obesity due to excess calories; Z68.37 - Body mass index [BMI] 37.0-37.9, adult (5) Other specified hypothyroidism: Code(s): E03.8 - Other specified hypothyroidism Category: Medical (6) Colon cancer screening: Code(s): Z12.11 - Encounter for screening for malignant neoplasm of colon Category: Social Hx Plan PE The patient is a 63-year-old female presenting with symptoms related to the eye possibly due to allergies. - She reports intermittent episodes of irritation and itchiness in the right eye, - These symptoms occur off and on, and rubbing the eye appears to exacerbate the irritation - She notes these symptoms are likely related to springtime allergies, Patient is feeling emotional as she just lost her son 2 weeks ago but holding on She has obstructive sleep apnea and her machine is malfunctioning It has been 10 years since she had a sleep study done, new order placed Patient has seen [facility] end of last year and has appointment coming up Mammogram through them She is due for colonoscopy, referral placed Trying to lose weight Lab order placed, which is overdue Patient is prediabetic She is also taking levothyroxine 25 mcg She says that she will come in tomorrow for blood test Follow-up 1 year physical exam Diagnostic results - Blood pressure recorded at 134/80 mmHg, indicating prehypertensive range. Orders: Orders Complete Blood Count Auto Diff Today E03.8 - Other specified hypothyroidism, E66.01 - Morbid (severe) obesity due to excess calories, G47.30 - Sleep apnea, unspecified, R73.01 - Impaired fasting glucose, Z00.01 - Encounter for general adult medical examination with abnormal findings, Z68.37 - Body mass index [BMI] 37.0-37.9, adult Lipid Panel Today E03.8 - Other specified hypothyroidism, E66.01 - Morbid (severe) obesity due to excess calories, G47.30 - Sleep apnea, unspecified, R73.01 - Impaired fasting glucose, Z00.01 - Encounter for general adult medical examination with abnormal findings, Z68.37 - Body mass index [BMI] 37.0-37.9, adult TSH reflex Free T4 Today E03.8 - Other specified hypothyroidism, E66.01 - Morbid (severe) obesity due to excess calories, G47.30 - Sleep apnea, unspecified, R73.01 - Impaired fasting glucose, Z00.01 - Encounter for general adult medical examination with abnormal findings, Z68.37 - Body mass index [BMI] 37.0-37.9, adult UA CC w/rflx Micro + Cult Today E03.8 - Other specified hypothyroidism, E66.01 - Morbid (severe) obesity due to excess calories, G47.30 - Sleep apnea, unspecified, R73.01 - Impaired fasting glucose, Z00.01 - Encounter for general adult medical examination with abnormal findings, Z68.37 - Body mass index [BMI] 37.0-37.9, adult RT PSG in-lab sleep titration Today G47.30 - Sleep apnea, unspecified Comprehensive [place] Panel Fast Today E03.8 - Other specified hypothyroidism, E66.01 - Morbid (severe) obesity due to excess calories, G47.30 - Sleep apnea, unspecified, R73.01 - Impaired fasting glucose, Z00.01 - Encounter for general adult medical examination with abnormal findings, Z68.37 - Body mass index [BMI] 37.0-37.9, adult Vitamin D 25-OH (D2 and D3) Today E03.8 - Other specified hypothyroidism, E66.01 - Morbid (severe) obesity due to excess calories, G47.30 - Sleep apnea, unspecified, R73.01 - Impaired fasting glucose, Z00.01 - Encounter for general adult medical examination with abnormal findings, Z68.37 - Body mass index [BMI] 37.0-37.9, adult Hemoglobin A1c Today E03.8 - Other specified hypothyroidism, E66.01 - Morbid (severe) obesity due to excess calories, G47.30 - Sleep apnea, unspecified, R73.01 - Impaired fasting glucose, Z00.01 - Encounter for general adult medical examination with abnormal findings, Z68.37 - Body mass index [BMI] 37.0-37.9, adult Referrals Gastroenterology Referral Z12.11 - Encounter for screening for malignant neoplasm of colon
== END 2024-08-19 15:38 | disposition home or self-care (01) ==
LOC: HO.HMCC 15:08
PROVIDERS: PCP Internal Medicine; Visit Provider Internal Medicine
DX: Z00.00 Encounter for general adult medical examination without abnormal findings (principal); G47.30 Sleep apnea, unspecified; E66.01 Morbid (severe) obesity due to excess calories; Z68.37 Body mass index [BMI] 37.0-37.9, adult; R73.01 Impaired fasting glucose; E03.8 Other specified hypothyroidism; Z12.11 Encounter for screening for malignant neoplasm of colon

== ENCOUNTER → 2024-08-19 15:07 | Outpatient (BNVA) | payer OTHER, SELFPAY | PROVIDERS: PCP Internal Medicine; Visit Provider Internal Medicine | DX: Z00.01 Encounter for general adult medical examination with abnormal findings (principal); G47.30 Sleep apnea, unspecified; R73.01 Impaired fasting glucose; E66.01 Morbid (severe) obesity due to excess calories; Z68.37 Body mass index [BMI] 37.0-37.9, adult; E03.8 Other specified hypothyroidism | CPT/HCPCS: 96127; 99396 ==

== ENCOUNTER 2024-08-20 07:33 | Outpatient (REF) | payer OTHER, SELFPAY ==
[2024-08-20 11:04] LABS: Appearance Urine Clear; Color Urine Yellow; Glucose Urine UA Negative (Negative); Leukocyte Esterase Urine Negative (Negative); Nitrite Urine Negative (Negative); Specific Gravity - Urine 1.015 (1.005-1.025); Urine Blood Negative (Negative); Urine Ketones Negative (Negative); Urine Protein Negative (Neg-Trace)
[2024-08-20 11:24] LABS: MANUAL DIFF FLAG NO
[2024-08-20 11:34] LABS: Basophils Percent Auto 0.4 % (0-2); Eosinophils Absolute Auto 0.2 X10*3/uL (0.0-0.4); Eosinophils Percent Auto 2.2 % (0-4); Hematocrit 44.6 % (37.0-47.0); Hemoglobin 15.2 g/dl (12.0-16.0); Imm Gran Abs Auto 0.03 X10*3/uL (0.00-0.03); Imm Gran Pct Auto 0.4 % (0.0-0.4); Lymphocytes Absolute Auto 2.8 X10*3/uL (1.2-4.9); Mean Corpuscular HGB Conc 34.1 g/dl (31.0-35.0); Mean Corpuscular Hemoglobin 32.1 pg (27.0-33.0); Mean Corpuscular Volume 94.1 fL (80.0-98.0); Mean Platelet Volume 10.3 fL (9.4-12.3); Monocytes Absolute Auto 0.5 X10*3/uL (0.1-1.2); Monocytes Percent Auto 6.7 % (2-11); Neutrophils Absolute Auto 4.3 x10*3/uL (2.0-8.3); Neutrophils Percent Auto 54.3 % (45-73); Platelet Count 259 X10*3/uL (160-400); Red Blood Count 4.74 X10*6/uL (4.20-5.50); Red Cell Distribution Width 12.3 % (11.0-16.0); White Blood Count 7.9 X10*3/uL (4.8-10.8)
[2024-08-20 11:56] LABS: Estimated Average Glucose 117 mg/dL; Hemoglobin A1c % 5.7 % (<6.0); Total Hemoglobin (HGBA1C) 3998.6569 umol/L
[2024-08-20 12:19] LABS: Alanine Aminotransferase 49 U/L (0-31); Albumin Level 4.3 g/dL (3.5-5.0); Alkaline Phosphatase 65 U/L (39-117); Anion Gap 14 (12-20); Aspartate Amino Transferase 29 U/L (5-31); Bilirubin Total 0.4 mg/dL (0.0-1.0); Blood Urea Nitrogen 13 mg/dL (9-16); Calcium 10.1 mg/dL (8.4-10.2); Carbon Dioxide 29 mmol/L (22-29); Chloride 105 mmol/L (96-108); Cholesterol 159 mg/dL (<200); Estimated Glomerular Filt Rate > 60; Glucose Fasting 115 mg/dL (60-99); HDL Cholesterol 42 mg/dL (>40); LDL Cholesterol Calculated 92 mg/dL (<100); Potassium 4.9 mmol/L (3.3-5.1); Sodium 143 mmol/L (135-145); TSH reflex Free T4 1.58 uIU/mL (0.32-4.0); Triglycerides 129 mg/dL (<150)
[2024-08-24 14:37] LABS: Vitamin D 25-OH, D2 <4 ng/mL; Vitamin D 25-OH, D3 34 ng/mL; Vitamin D 25-OH, Total 34 ng/mL (30-100)
== END 2024-08-20 07:34 | disposition home or self-care (01) ==
LOC: HO.HMGCLDS 07:33
PROVIDERS: PCP Internal Medicine; Visit Provider Internal Medicine
DX: Z00.01 Encounter for general adult medical examination with abnormal findings (principal); G47.30 Sleep apnea, unspecified; R73.01 Impaired fasting glucose; E66.01 Morbid (severe) obesity due to excess calories; Z68.37 Body mass index [BMI] 37.0-37.9, adult; E03.8 Other specified hypothyroidism
CPT/HCPCS: 36415; 80053; 80061; 81003; 82306; 83036; 84443; 85025

== ENCOUNTER 2025-04-08 08:26 | Outpatient (REF) | payer OTHER, SELFPAY ==
--- NOTE | ~2025-04-08 | MM_ITS ---
EXAMINATION: MM SCREENING DIGITAL BREAST TOMOSYNTHESIS, BILATERAL CLINICAL INFORMATION: Screening. Asymptomatic. COMPARISON: Comparison made to multiple prior, most recent April 02, 2024, and most remote September 10, 2017. TECHNIQUE: Digital breast tomosynthesis is performed in mediolateral oblique and craniocaudal views along with computer-aided detection (CAD). Synthesized 2D images are generated from the tomosynthesis. FINDINGS: BREAST COMPOSITION: There are scattered areas of fibroglandular density. BILATERAL BREASTS: No significant masses, suspicious calcifications or other abnormalities are seen in either breast. MM/MM tomosynthesis screening BI IMPRESSION: BILATERAL BREASTS: Negative, no mammographic evidence of malignancy. Normal interval follow-up is recommended in 12 months. ASSESSMENT: BI-RADS: Category 1: Negative RECOMMENDATION: Routine annual mammography screening. FOLLOW-UP: 1 year F/U This examination should not preclude the clinical evaluation of a suspicious palpable abnormality. This patient's information was entered into a reminder system with a target due date for their next mammogram. Electronically signed by: Abel Mascorro MD 04/11/2025 05:50 PM [facility]
== END 2025-04-08 08:27 | disposition home or self-care (01) ==
LOC: HO.MAMMO 08:26
PROVIDERS: PCP Internal Medicine; Visit Provider Internal Medicine
DX: Z12.31 Encounter for screening mammogram for malignant neoplasm of breast (principal)
CPT/HCPCS: 77063; 77067

== ENCOUNTER → 2025-04-08 09:00 | Outpatient (BNV) | payer OTHER, SELFPAY | PROVIDERS: PCP Internal Medicine; Visit Provider Radiology Body Imaging | DX: Z12.31 Encounter for screening mammogram for malignant neoplasm of breast (principal) | CPT/HCPCS: 77063; 77067 ==

== ENCOUNTER → 2025-04-27 07:49 | Outpatient (REF) | payer OTHER, SELFPAY | LOC: HO.SL 07:49 | PROVIDERS: PCP Internal Medicine; Visit Provider Internal Medicine | DX: G47.30 Sleep apnea, unspecified (principal) | CPT/HCPCS: 95806 ==

== ENCOUNTER → 2025-04-27 08:10 | Outpatient (BNV) | payer OTHER, SELFPAY | PROVIDERS: PCP Internal Medicine; Visit Provider Psychiatry & Neurology Neurology | DX: G47.33 Obstructive sleep apnea (adult) (pediatric) (principal) | CPT/HCPCS: 95806 ==